=== PATIENT | female | born 1960 | race Caucasian/White ===

== ENCOUNTER → 2023-12-07 07:27 | Outpatient (REF) | payer OTHER, SELFPAY | LOC: HWRAD 07:27 | PROVIDERS: ATTENDING PHYSICIAN Nurse Practitioner Family; FAMILY PHYSICIAN Family Medicine | DX: Z78.0 Asymptomatic menopausal state (principal); N95.1 Menopausal and female climacteric states | CPT/HCPCS: 77080 ==

== ENCOUNTER → 2023-12-21 09:11 | Outpatient (REF) | payer OTHER, SELFPAY | LOC: HWWDC 09:11 | PROVIDERS: ATTENDING PHYSICIAN Nurse Practitioner Family; FAMILY PHYSICIAN Family Medicine | DX: Z12.31 Encounter for screening mammogram for malignant neoplasm of breast (principal) | CPT/HCPCS: 77063; 77067 ==

== ENCOUNTER → 2024-12-07 12:31 | Outpatient (REF) | payer OTHER, SELFPAY | LOC: RAD 12:31 | PROVIDERS: ATTENDING PHYSICIAN Family Medicine; FAMILY PHYSICIAN Family Medicine | DX: R14.0 Abdominal distension (gaseous) (principal) | CPT/HCPCS: 74018; 76700 ==

== ENCOUNTER 2024-12-10 13:42 | Inpatient (IN) | payer OTHER, SELFPAY ==
[2024-12-10] VITALS (7 sets, daily range): BP systolic 104–158; BP diastolic 58–99; BMI 22.7
--- NOTE | 2024-12-10 08:18 | ED.GENMED ---
History of Present Illness
General
Chief Complaint: Abdominal Symptoms
Source: patient and spouse
Time Seen by Provider: 12/10/24 07:59
History of Present Illness
History of Present Illness:
CHIEF COMPLAINT(S)
Bloating and feeling of fullness.
HISTORY OF PRESENT ILLNESS
The patient is a 64-year-old female with no significant past medical history who presents with bloating and a sensation of fullness that began approximately two to three weeks ago. She reports no associated pain, nausea, vomiting, or diarrhea but
mentions an increasing inability to eat and drink due to feeling full quickly. She has observed a change in her bowel movements which have become less frequent, yet without associated discomfort. The patient notes that her heart rate is now in the
90s, whereas it used to be in the 60s, and she has experienced a notable sleeping difficulty, necessitating her to sit in a chair to breathe comfortably. There is no report of fevers, chills, weight loss, or unintended weight gain. The patient has a
history of Lyme disease two years ago and made subsequent lifestyle adjustments to maintain a healthy diet. No shortness of breath was explicitly stated, but she described breathing difficulty as impacting her ability to rest.
SOCIAL HISTORY
The patient reports past use of cigarettes as a teenager and currently consumes an alcoholic cocktail at dinner regularly. There is no reported use of intravenous drugs.
MEDICATIONS
The patient takes supplements for potential osteopenia.
REVIEW OF SYSTEMS
- Constitutional: Feeling of fullness, bloating.
- Cardiovascular: Increased heart rate noted by the patient.
- Respiratory: Difficulty breathing while lying flat.
- Gastrointestinal: Early satiety, decreased bowel movements, no nausea, vomiting, or diarrhea.
Past History
Past History
ED Past Medical History: Hypercholesterolemia and Other (Lyme disease)
ED Past Surgical History: None
Social History
Tobacco: Non-smoker
Alcohol: None
Drug: None
Personal:
Living: with family
Review of Systems
Review of Systems
All Other Systems: ROS reviewed and negative except as documented in HPI and ROS
Phy Exam
Physical Exam
Physical Exam:
GENERAL: Alert , in no apparent distress
EYE: clear conjunctiva b/l
HEAD: NCAT
ENT: o/p clr, mmm.
CARDIAC: Regular rate and rhythm .
LUNGS: Clear breath sounds bilaterally, no acute respiratory distress, no wheezes/rales/rhonchi
ABDOMEN: somewhat firm, distended, no focal ttp, normoactive bowel sounds, no r/g, no cvat
NEUROLOGICAL: Alert and oriented
SKIN: Warm and dry, skin intact.
MUSCULOSKELETAL: No edema, well perfused.
PSYCH: Normal and appropriate interaction.
Scores
Heart Failure Risk
Heart Failure Risk Score: Not Applicable
Heart Score for Chest Pain Patients
STEMI patient?: Not applicable
Withdrawal Assessment of Alcohol
Withdrawal Assessment Completed?: Not applicable
Course
Orders/Labs/Results
Orders:
Orders
12/10/24 08:04
CMP [Comprehensive Metabolic Panel] Urgent
Complete Blood Count/With Diff Urgent
Lipase Urgent
Comment: ADD ON
12/10/24 08:32
Add On- LAB Urgent
Tests Added?: lipase
Iohexol [Omnipaque] See Protocol PO NOW STA
12/10/24 08:33
CT Abd/pel W Iv And Oral Contr Urgent
Comment:
Reason For Exam: abd distention, ascites on US imaging
12/10/24 09:46
Urinalysis Reflex To Culture Urgent
Date Specimen was Collected: 12/10/24
Time Specimen was Collected: 09:44
Urine Microscopic Reflex Cult Urgent
Urine Culture Urgent
NETTIE Source: U
Specimen Description:
Date Specimen was Collected: 12/10/24
Time Specimen was Collected: 09:44
12/10/24 12:46
Admit/Transfer Patient As Directed
Co-Sign Provider:
Level of Care: Inpatient admission
Assign to:: Medical/Surgical
Physician / Group: tyrone
Diagnosis: abdominal distention
Reason for Hospitalization: abdominal distention
Expected length of stay greater than two midnights?: Yes
ELOS- Estimated Length of Stay in days: 2
I certify the patient meets the requirements for IP care: Yes
PRN Pain Medication Management As Directed
May give lesser potent ordered pain med per pt: Yes
preference::
Protocol:: Medication orders for pain may be administered in a
manner that supports deferring to patient preference
when the pt is:
- Requesting an ordered lesser potent pain medication.
Least to most potent pain medications are defined
as: acetaminophen < NSAID < tramadol < opioids
(morphine, oxycodone, hydromorphone).
- Requesting a lesser dose of the same medication IF
ORDERED.
- Requesting a less intrusive route of administration
if both routes are prescribed by the provider (PO <
IV).
12/10/24 12:47
Code Status As Directed
Resuscitation Status: Full Code
Abnormal Lab Results
12/10/24 12/10/24
08:04 09:46
WBC 11.4 H 10^3/uL
(4.8-10.8)
RBC 4.19 L 10^6/uL
(4.20-5.40)
Plt Count 565 H 10^3/uL
(130-400)
Abs Immat Gran (auto) 0.1 H 10^3/uL
(0-0.05)
Absolute Neuts (auto) 8.7 H 10^3/uL
(1.4-6.5)
Absolute Monos (auto) 0.9 H 10^3/uL
(0.1-0.6)
Neutrophils % 76.4 H %
(42.2-75.2)
Lymphocytes % 13.6 L %
(20.5-51.1)
Glucose 107 H mg/dl
(70-99)
Urine Ketones 3+ A
(Negative)
Ur Occult Blood Reflex 1+ A
(Negative)
Leukocyte Esterase Rfl 1+ A
(Negative)
Urine RBC 3-6 A /HPF
(0-2)
Urine Bacteria (Reflex) Moderate A
(Negative)
Urine Albumin (Reflex) 2+ A
(Neg - Trace)
12/10/24 08:04
12/10/24 08:04
Vital Signs
Initial and Last Documented VS:
Initial Vital Signs
Temp Pulse Resp BP Pulse Ox
97.8 F 107 18 158/90 100
12/10/24 07:28 12/10/24 07:28 12/10/24 07:28 12/10/24 07:28 12/10/24 07:28
Last Documented Vital Signs
Temp Pulse Resp BP Pulse Ox
97.8 F 96 16 150/84 98
12/10/24 07:28 12/10/24 13:02 12/10/24 13:02 12/10/24 13:02 12/10/24 13:02
MDM/Problems Addressed
Differential Diagnosis Includes:
The Differential Diagnosis includes, in no particular order and is not limited to:
1. Ascites
2. Gastroparesis
3. Gastroesophageal reflux disease (GERD)
4. Abdominal tumor
5. Hepatomegaly
6. Pancreatitis
7. Congestive heart failure
8. Ovarian cancer/other malignancy
9. Gastric outlet obstruction
10. Small bowel obstruction
MDM/Problems Addressed:
- Perform a Computed Tomography (CAT) scan with both oral and intravenous contrast to assess abdominal and pelvic regions.
- Blood work ordered
- Maintain communication with the patients primary care physician, Dr. Ribera, regarding test results.
*Radiology
Radiology exam reviewed: radiology read reviewed
*Pulse Oximetry
Patient hypoxic: no
Comment: 98
*Business Project Manager Interpretation
Rate: normal
Rhythm: sinus
*Critical Care Note
Total Time (30-74mins, 75-104mins- exclusive of procedures): Not Applicable
Patient Management
Discussion with other providers: Hospitalist and Employment Clerk
Escalation/DeEscalation of care consider admission/obs:
Patient CT scan findings noted for the following:
IMPRESSION:
1. Moderate to large volume MALIGNANT ASCITES.
2. 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
3. Small soft tissue masses within or around ileal small bowel loops in the right mid abdomen. Diagnostic possibilities are (1) serosal metastases or (2) mucosal-based small bowel tumors.
4. Moderate appendiceal wall thickening without evidence for abnormal distention.
I discussed the case with on-call oncologist, Dr. Welsh, who requests we admit the patient for further evaluation and she will see the patient in consult. I also discussed the case with interventional radiology to see if we would be able to
obtain paracentesis today but due to their current schedule this would be likely occurring either tomorrow or Thursday. I notified the hospitalist team who accept the patient for continued evaluation and treatment.
ED Attending Note
-
Portions of this chart may have been created with voice recognition software.� Occasional wrong word or��sound alike� substitutions may have occurred due to the inherent limitations of voice recognition software.
Discharge Plan
Departure
Patient Disposition: Admit
Date of Disposition: 12/10/24
Time of Disposition: 12:30
Presentation/result/management discussed w/ accepting MD/DO: Hospitalist
Discharge Problem:
Malignant ascites
Interventions
Interventions:
*Risk Screen - Suicide Last Done: 12/10/24 07:28
*General Assessment Last Done: 12/10/24 07:28
*Neglect/Abuse Screening Last Done: 12/10/24 07:28
*ED- Fall Risk Assessment Last Done: 12/10/24 07:51
*ED COVID-19 Vaccine History Last Done: 12/10/24 07:51
CK-Xnwusj-Cfgamibpqt Assessment Last Done: 12/10/24 07:51
[2024-12-10 08:27] LABS: ALT (SGPT) < 10 U/L (0-35); AST (SGOT) 22 U/L (14-36); Albumin 3.7 g/dl (3.5-5.0); Alkaline Phosphatase 95 U/L (38-126); Blood Urea Nitrogen 10 mg/dl (7-17); Calcium 9.3 mg/dl (8.4-10.2); Carbon Dioxide 28 mmol/L (22-30); Chloride 102 mmol/L (98-107); Estimated Creatinine Clearance 59 ml/min; Glucose 107 mg/dl (70-99); Potassium 4.4 mmol/L (3.5-5.1); Sodium 136 mmol/L (135-145); Total Bilirubin 0.5 mg/dl (0.2-1.3); Total Protein 6.4 g/dl (6.3-8.2); eGFR > 60.00
[2024-12-10 08:31] LABS: % Basophils 0.7 % (0-2); % Eosinophils 0.8 % (0-6); % Immature Granulocytes 0.5 % (0-0.5); % Lymphocytes 13.6 % (20.5-51.1); % Neutrophils 76.4 % (42.2-75.2); Absolute Basophils 0.1 10^3/uL (0-0.2); Absolute Eosinophils 0.1 10^3/uL (0-0.7); Absolute Immature Granulocytes 0.1 10^3/uL (0-0.05); Absolute Lymphocytes 1.6 10^3/uL (1.2-3.4); Absolute Monocytes 0.9 10^3/uL (0.1-0.6); Absolute Neutrophils 8.7 10^3/uL (1.4-6.5); Hematocrit 38.1 % (37.0-47.0); Hemoglobin 12.8 g/dL (12.0-16.0); Mean Corp Hgb Conc. 33.6 g/dL (33.0-37.0); Mean Corpuscular Hgb 30.5 pg (27.0-31.0); Mean Corpuscular Volume 90.9 fL (81.0-99.0); Mean Platelet Volume 9.9 fL (7.4-10.4); Nucleated Red Blood Cells % 0 %; Platelet Count 565 10^3/uL (130-400); Red Blood Cell Count 4.19 10^6/uL (4.20-5.40); Red Cell Dist. Width 12.2 % (11.5-14.5); White Blood Cell Count 11.4 10^3/uL (4.8-10.8)
[2024-12-10] MEDS: OMNIPAQUE 50 ML PO (08:41)
[2024-12-10 09:01] LABS: Lipase 55 U/L (23-300)
[2024-12-10 09:58] LABS: Urine Albumin 2+ (Neg - Trace); Urine Bilirubin Negative (Negative); Urine Character Clear (Clear); Urine Color Yellow; Urine Glucose Negative (Negative); Urine Ketone 3+ (Negative); Urine Leukocyte 1+ (Negative); Urine Nitrite Negative (Negative); Urine Occult Blood 1+ (Negative); Urine Specific Gravity 1.025 (<1.030); Urine Urobilinogen 1+ (Neg - 1+)
[2024-12-10 10:07] LABS: Urine Bacteria Moderate (Negative); Urine Mucus Many; Urine Squamous Cell 0-2 /LPF (Few); Urine White Cell 0-2 /HPF (0-5)
--- NOTE | 2024-12-10 12:52 | HPS.HSE ---
Family Physician
-
Family Physician: Sidney Ribera
Chief Complaint
-
abdominal fullness
History of Present Illness
64-year-old female past medical history of Lyme's disease 2 years ago presenting with bloating and fullness that started 2 to 3 weeks ago. No abdominal pain, nausea vomiting or diarrhea but has inability to eat and drink due to feeling full
quickly. Bowel movements have become less frequent without discomfort. Heart rate is now in the 90s and used to be in the 60s. She has had difficulty sleeping and has to sit in a chair to breathe comfortably. No fevers or chills, weight loss or
weight gain.
No family history of GI problems, ovarian tumors or malignancies.
She smoked cigarettes as a teenager and drinks an alcoholic cocktail at dinner regularly. Denies drug IV drugs.
Medical History
Past Medical History
Past Medical History: Reports Other
Past Surgical History: Reports None
Social History
Tobacco: Non-smoker
Alcohol: None
Drug: None
Family History
Family History: Not pertinent
Allergies / Home Medications
Allergies reflects when Allergies were last updated in [facility].
Home Medications with original date entered in [facility]
Allergy/Medication List:
Allergies
Allergy/AdvReac Type Severity Reaction Status Date / Time
No Known Allergies Allergy Unverified 12/10/24 07:34
Review of Systems
-
History Source: Patient
A 12 point ROS was completed and negative except as noted: Yes
Constitutional: Reports No Symptoms
EENT: Reports No Symptoms
Respiratory: Reports No Symptoms
Cardiac: Reports No Symptoms
Abdomen/GI: Reports See HPI
: Reports No Symptoms
Musculoskeletal: Reports No Symptoms
Skin: Reports No Symptoms
Neurological: Reports No Symptoms
Endocrine: Reports No Symptoms
Hematologic/Lymphatic: Reports No Symptoms
Psych: Reports No Symptoms
Physical Exam
Vital Signs
Vital Signs
Temp Pulse Resp BP Pulse Ox
97.8 F 95 18 137/74 100
12/10/24 07:28 12/10/24 08:02 12/10/24 08:02 12/10/24 08:02 12/10/24 08:02
Physical Exam
General: Well Developed, Well Nourished and No Apparent Distress
HEENT: NormoCephalic, Moist mucous membranes and Atraumatic
Respiratory: Clear
Cardiac: S1/S2 and Regular Rhythm; No Murmur or Rub
GI: Soft, Non Tender, Normal Bowel Sounds and Distended; No Organomegaly
Rectal: Deferred by Provider
Musculoskeletal: No Clubbing, No Cyanosis and No Edema
Skin: No Rash
Neuro: Nonfocal/grossly intact
Laboratory Results
-
12/10/24 08:04
12/10/24 08:04
Laboratory Results
Total Bilirubin 0.5 mg/dl (0.2-1.3) 12/10/24 08:04
AST 22 U/L (14-36) 12/10/24 08:04
ALT < 10 U/L (0-35) 12/10/24 08:04
Alkaline Phosphatase 95 U/L (38-126) 12/10/24 08:04
Lipase 55 U/L (23-300) 12/10/24 08:04
Data Reviewed
-
Lab Data: Labs Reviewed by me
Old Records: Reviewed
Impression/Plan
-
IMPRESSION:
PLAN:
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
-Leukocytosis
-CT scan shows moderate to large volume malignant ascites, omental metastatic disease in left upper quadrant, small soft tissue masses within or around ileal small bowel loops in the right midabdomen, moderate appendiceal wall thickening, 8.2 mm
cyst in the right ovary, moderate circumferential wall thickening in the gastric antrum, small hiatal hernia
- Concern for small bowel malignancy with associated malignant ascites
- IR consulted for paracentesis with fluid studies and cytology
- GI consulted
- Oncology consulted
History of Lyme's disease
Full code
DVT prophylaxis�heparin
Regular diet
--- NOTE | 2024-12-10 13:57 | CM ---
Met with patient at bedside in the ED
Pharmacy verified: [facility] @ [address] [facility]
Patient lives w/ ; multilevel home; 1 step to enter; 13 steps to 2nd floor; railing on stairs; bath has shower w/ seat and grab bar
PLOF: independent with ambulation, stairs, and ADLs; drives
No DME
NO SNF or Home Health utilization history
will transport home
Plan: anticipate discharge to home when stable; residential case manager will monitor for needs/services
--- NOTE | 2024-12-10 14:37 | EDRN ---
Patient taken to room 419-2 in wheelchair by crime lab technician.
[2024-12-10] MEDS: HEPARIN 5000 UNITS SC (20:28)
[2024-12-11 06:14] LABS: % Basophils 0.5 % (0-2); % Immature Granulocytes 0.6 % (0-0.5); % Lymphocytes 15.1 % (20.5-51.1); % Neutrophils 74.8 % (42.2-75.2); Absolute Basophils 0.1 10^3/uL (0-0.2); Absolute Eosinophils 0.1 10^3/uL (0-0.7); Absolute Immature Granulocytes 0.1 10^3/uL (0-0.05); Absolute Lymphocytes 1.4 10^3/uL (1.2-3.4); Absolute Monocytes 0.8 10^3/uL (0.1-0.6); Hematocrit 34.3 % (37.0-47.0); Hemoglobin 11.4 g/dL (12.0-16.0); Mean Corp Hgb Conc. 33.2 g/dL (33.0-37.0); Mean Corpuscular Hgb 29.9 pg (27.0-31.0); Mean Platelet Volume 9.8 fL (7.4-10.4); Nucleated Red Blood Cells % 0 %; Platelet Count 544 10^3/uL (130-400); Red Blood Cell Count 3.81 10^6/uL (4.20-5.40); Red Cell Dist. Width 11.9 % (11.5-14.5); White Blood Cell Count 9.4 10^3/uL (4.8-10.8)
[2024-12-11 06:46] LABS: ALT (SGPT) < 10 U/L (0-35); AST (SGOT) 20 U/L (14-36); Albumin 3.2 g/dl (3.5-5.0); Alkaline Phosphatase 94 U/L (38-126); Blood Urea Nitrogen 7 mg/dl (7-17); Calcium 8.8 mg/dl (8.4-10.2); Carbon Dioxide 25 mmol/L (22-30); Chloride 101 mmol/L (98-107); Estimated Creatinine Clearance 67 ml/min; Glucose 102 mg/dl (70-99); Potassium 4.8 mmol/L (3.5-5.1); Sodium 132 mmol/L (135-145); Total Bilirubin 0.5 mg/dl (0.2-1.3); Total Protein 5.7 g/dl (6.3-8.2); eGFR > 60.00
[2024-12-11 07:01] VITALS: BP 143/81
[2024-12-11] MEDS: VISBIOME 1 CAP PO (07:49)
[2024-12-11] MEDS: TUMS EX (EXTRA STRENGTH) CHEWABLE TABLET 600 MG PO (07:49)
[2024-12-11] MEDS: HEPARIN SC ×2 (07:50→20:23)
[2024-12-11] MEDS: CRESTOR 5 MG PO (07:50)
--- NOTE | 2024-12-11 08:24 | W.PN.HOSP.TC ---
Today's Communication/Plan
-
NPO after midnight for EGD to be done after paracentesis and possible omental lesion bx w/ IR
Assessment / Plan
Assessment / Plan
Physical Exam
General: no acute distress, appears comfortable at this time
HEENT: NormoCephalic, Moist mucous membranes and Atraumatic
Respiratory: Clear
Cardiac: S1/S2 and Regular Rhythm; No Murmur or Rub
GI: Soft, Non Tender, Normal Bowel Sounds, Distended
Musculoskeletal: No Clubbing, No Cyanosis and No Edema
Skin: No Rash
Neuro: AOx3 conversant coherent
Psych: Relatively calm, some anxiety noted regarding possible malignancy diagnosis.
64F Hyperlipidemia here for evaluation abd distension likely malignant ascites.
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
-Leukocytosis resovled
-CT scan shows moderate to large volume malignant ascites, omental metastatic disease in left upper quadrant, small soft tissue masses within or around ileal small bowel loops in the right midabdomen, moderate appendiceal wall thickening, 8.2 mm
cyst in the right ovary, moderate circumferential wall thickening in the gastric antrum, small hiatal hernia
- Concern for small bowel malignancy with associated malignant ascites
- IR consulted for paracentesis with fluid studies and cytology planned for Thu12/12/24 also possible bx omental lesion if accesible
- GI consult appreciated npo after Midnight for EGD after paracentesis as above, eventual colonoscopy evaluation as well
- Oncology consult appreciated follow up tumor markers
HLD
-cont statin
Full code
DVT prophylaxis� Lovenox
Regular diet
I spent a total of 45 minutes with the patient or on the floor. More than 50% of this time involved counseling and coordination of care.
Anticipated Discharge: 24 - 48 hours
Subjective/Interval History
-
Date of Service: December 11, 2024
No acute distress. Ambulatory without issues or need for assist device. Appears comfortable. Abd distension noted without significant pain or tenderness.
Objective Data
-
Labs:
Laboratory Results
12/11/24
05:39
WBC 9.4
Hgb 11.4 L
Hct 34.3 L
Plt Count 544 H
Sodium 132 L
Potassium 4.8
Chloride 101
Carbon Dioxide 25
BUN 7
Creatinine 0.7
Glucose 102 H
Calcium 8.8
Total Bilirubin 0.5
AST 20
ALT < 10
Alkaline Phosphatase 94
Vital Signs:
Vital Signs
Temp Pulse Resp BP Pulse Ox
97.3 F 102 18 143/81 97
12/11/24 07:01 12/11/24 07:01 12/11/24 07:01 12/11/24 07:01 12/11/24 07:01
I&O
12/10/24 12/11/24 12/12/24
06:59 06:59 06:59
Intake Total 480 / 480
Balance 480 / 480
--- NOTE | 2024-12-11 10:07 | CON.GI ---
Consultation
-
Date/Time Consultation Requested: 12/11/24
Date/Time Consultation Performed: 12/11/24
Requesting Provider:
Performing Provider:
Reason for Consultation: Abdominal distention
Medical History
Chief Complaint / HPI
Chief Complaint: Abdominal distention
History of Present Illness:
64-year-old female with no significant past medical history presenting to the emergency room with complaints of abdominal fullness and distention in the 3 weeks. She reports that other than distention, she denies any abdominal pain, nausea or
vomiting. No heartburn, regurgitation, sour taste, sore throat, choking or coughing. No trouble swallowing. Her bowel pattern is usually 1 formed stool a day, no pushing or straining, good evacuation. No blood in the stool or black stool. No
loss of appetite, unintentional weight loss or NSAID use.
Last colonoscopy for screening with Dr. Puckett in 2009,
Diverticulosis noted, otherwise unremarkable. As per patient she gets Cologuard testing every 3 years, last Cologuard February 2024 negative as per patient. No family history of colon cancer or colon polyps.
In the emergency room, labs showed hemoglobin slightly low at 11.3, normocytic but elevated platelets, CMP shows albumin of 3.2. Abdominal ultrasound showed small to moderate volume ascites and mildly heterogeneous hepatic echotexture suggesting
chronic hepatic disease without any cirrhotic morphology.
CT scan of the abdomen and pelvis with IV and oral contrast revealed moderate to large volume ascites presumably malignant, omental metastatic disease in the left upper quadrant, small soft tissue masses within or around ileal small bowel loops in
the right mid abdomen, rule out serosal metastasis versus small bowel tumors, moderate appendiceal wall thickening, moderate circumferential wall thickening in the gastric antrum and small hiatal hernia.
Past Medical History
Past Surgical History: None
Social History
Tobacco: Former Smoker
Alcohol: Daily (7-10 drinks a week but at least 1 drink a day)
Family History
Family History: Reviewed & Not Pertinent
Allergies / Home Medications
Allergy/AdvReac Type Severity Reaction Status Date / Time
No Known Allergies Allergy Verified 12/10/24 13:00
�Medication �Instructions �Recorded
Collagen Peptides 1 dose PO DAILY Supplement 12/10/24
Lactobac no.2-Bifidobac no.1-S. 1 cap PO DAILY Supplement 12/10/24
thermo 112.5 billion cell capsule
(Visbiome)
brimonidine 0.025 % eye drops 1 drp ophthalmic (eye) DAILYPRN 12/10/24
(Lumify) PRN red eyes
calcium carbonate 600 mg PO DAILY Supplement 12/10/24
finasteride 1 mg tablet 1 mg PO DAILY BPH 12/10/24
rosuvastatin 5 mg tablet (Crestor) 5 mg PO DAILY High Cholesterol 12/10/24
Review of Systems
-
All other systems: A 12 pt ROS was Negative except as stated above in HPI
Vital Signs
Temp Pulse Resp BP Pulse Ox
97.3 F 102 18 143/81 97
12/11/24 07:01 12/11/24 07:01 12/11/24 07:01 12/11/24 07:01 12/11/24 07:01
Physical Exam
Exam
HEENT: Normocephalic
Cardiac: S1/S2
GI: Soft, Non Tender and Distended
Results
WBC 9.4 10^3/uL (4.8-10.8) 12/11/24 05:39
Hgb 11.4 g/dL (12.0-16.0) L 12/11/24 05:39
Hct 34.3 % (37.0-47.0) L 12/11/24 05:39
MCV 90.0 fL (81.0-99.0) 12/11/24 05:39
Plt Count 544 10^3/uL (130-400) H 12/11/24 05:39
Absolute Neuts (auto) 7.0 10^3/uL (1.4-6.5) H 12/11/24 05:39
Sodium 132 mmol/L (135-145) L 12/11/24 05:39
Potassium 4.8 mmol/L (3.5-5.1) 12/11/24 05:39
Chloride 101 mmol/L (98-107) 12/11/24 05:39
Carbon Dioxide 25 mmol/L (22-30) 12/11/24 05:39
BUN 7 mg/dl (7-17) 12/11/24 05:39
Creatinine 0.7 mg/dL (0.6-1.0) 12/11/24 05:39
Calcium 8.8 mg/dl (8.4-10.2) 12/11/24 05:39
Total Bilirubin 0.5 mg/dl (0.2-1.3) 12/11/24 05:39
AST 20 U/L (14-36) 12/11/24 05:39
ALT < 10 U/L (0-35) 12/11/24 05:39
Alkaline Phosphatase 94 U/L (38-126) 12/11/24 05:39
Lipase 55 U/L (23-300) 12/10/24 08:04
Diagnostic Image Results:
Prior GI Procedures:
EGD:
Colonoscopy:
Assessment / Plan
-
64-year-old female with no significant past medical history presenting with complaints of abdominal distention, subsequent imaging with CT scan showing moderate to large volume ascites thought to be malignant, also noted this omental lesion in the
left upper quadrant, severe intraluminal or subserosal masses in the area of small bowel loops in the right lower quadrant and appendiceal wall thickening as well. Also noted is moderate amount of circumferential submucosal edema and wall
thickening in the gastric antrum.
- Ascites concerning for malignancy
Will need diagnostic/therapeutic paracentesis, fluid for white cells, albumin, total protein, cytology and cultures.
She will also need IR biopsy of the omental lesion if accessible which would be very helpful for pathology to determine the primary lesion.
Following paracentesis, upper endoscopy to evaluate small bowel thickening.
Subsequent colonoscopy to evaluate thickening of the appendiceal area and also rule out distal small bowel lesions.
Reviewed oncology evaluation as well.
-
-
Thank you for consultation and allowing me to participate in the patient's care. Please call the hospice community liaison GI physician during the after hours with any questions or concerns.
[2024-12-11 12:56] LABS: Iron 22 ug/dl (37-170)
[2024-12-11 13:05] LABS: Percent Saturation 8 % (20-50); Total Iron Binding Capacity 260 ug/dl (265-497)
--- NOTE | 2024-12-11 13:21 | W.PN.UPDATE ---
Update Note
Progress Note Update
Pt seen and examined, chart reviewed.
She has ascites on exam, omental thickening on CT.
No family history of cancer and no localizing signs or symptoms for a primary.
IR consulted regarding diagnostic paracentesis.
Tumor markers ordered although non-specific.
Await GI consult, needs EGD to eval gastric wall thickening and colonoscopy to eval appendiceal thickening.
Will d/w Dr. Kellogg upon his return from vacation.
FULL CONSULT TO FOLLOW.
[2024-12-11 13:27] LABS: CEA < 0.31 ng/ml
[2024-12-11 13:41] LABS: Ferritin 58.6 ng/ml (11.1-264.0)
[2024-12-11 14:53] LABS: Total Iron Binding Capacity 274 ug/dl (265-497)
[2024-12-11 15:28] LABS: Ferritin 64.9 ng/ml (11.1-264.0)
[2024-12-11 15:32] VITALS: BP 126/88
[2024-12-11 20:00] VITALS: BMI 22.5
--- NOTE | 2024-12-11 21:54 | CON.ONC ---
Consultation
-
Date Consultation Requested: 12/10/24
Date Consultation Performed: 12/11/24
Requesting Provider: César Arenas
Performing Provider: Carolina Welsh
Reason for Consultation: Possible intra-abdominal malignancy
Impression
Impression
Abdominal and pelvic ascites with omental caking, concerning for malignancy
Thrombocytosis
Mild normocytic anemia
Plan
Plan
Await diagnostic paracentesis for cell count, chemistries, cytology.
Tumor markers ordered although nonspecific.
Await GI consult, needs EGD to evaluate gastric wall thickening and colonoscopy to evaluate appendiceal thickening.
Thank you for consult, will follow along with you
Patient History
History of Present Illness
64-year-old woman in excellent health, no medical issues other than Lyme disease 2 years ago. About 3 weeks ago she began to note weight gain and abdominal distention. She underwent an abdominal ultrasound as an outpatient on December 07 which showed
small to moderate volume of ascites and mildly heterogeneous hepatic echotexture. She became increasingly uncomfortable due to abdominal distention and presented to the [facility] emergency room where she underwent a CT of the abdomen and
pelvis showing moderate to large volume of ascites, nodular thickening of the omentum, and thickening of the appendiceal wall and the gastric wall. She was admitted for management of symptomatic ascites. Patient is up-to-date with mammography.
She last underwent colonoscopy at age 50 but underwent Cologuard testing in February 2024. She has had no rectal bleeding or melena, no change in bowel habits and no abdominal pain. She has had no vaginal bleeding, cough, chest pain or shortness
of breath.
Past-Medical/Surgical History
Past medical history
Lyme disease 2 years ago
Past surgical history
None
Social History
Tobacco: Non-smoker
Alcohol: 1 glass of wine daily
Drug: None
Family History
Family History: Not pertinent
Patient Medication
�Medication �Instructions �Recorded �Confirmed �Last Taken �Type
Collagen Peptides 1 dose PO DAILY Supplement 12/10/24 12/10/24 12/09/24 History
Lactobac no.2-Bifidobac no.1-S. 1 cap PO DAILY Supplement 12/10/24 12/10/24 12/09/24 History
thermo 112.5 billion cell capsule
(Visbiome)
brimonidine 0.025 % eye drops 1 drp ophthalmic (eye) DAILYPRN 12/10/24 12/10/24 Unknown History
(Lumify) PRN red eyes
calcium carbonate 600 mg PO DAILY Supplement 12/10/24 12/10/24 12/09/24 History
finasteride 1 mg tablet 1 mg PO DAILY BPH 12/10/24 12/10/24 Unknown History
rosuvastatin 5 mg tablet (Crestor) 5 mg PO DAILY High Cholesterol 12/10/24 12/10/24 12/09/24 History
Active Medications
Generic Name Dose Route Start Last Admin
Trade Name Freq PRN Reason Stop Dose Admin
Acetaminophen 650 mg 12/11/24 10:55
Acetaminophen 325 Mg Tablet PO 01/08/25 10:54
Q6HPRN PRN
mild pain/ fever>100.5F/BROWN
Calcium Carbonate 600 mg 12/11/24 08:00 12/11/24 07:49
Calcium Antacid 300 Mg (Calcium Carbonate 750 Mg) Chew Tablet PO 01/08/25 07:59 600 mg
DAILY ROULA Administration
Heparin Sodium 5,000 units 12/10/24 20:00 12/11/24 20:23
Heparin 5,000 Units/Ml 1 Ml Vial SC 01/07/25 19:59 Not Given
Q12 ROULA
Lactobacillus/Bifidobacterium 1 cap 12/11/24 08:00 12/11/24 07:49
Lactobac/Bifidobac (Visbiome) PO 01/08/25 07:59 1 cap
DAILY ROULA Administration
Lorazepam 0.25 mg 12/11/24 11:30
Lorazepam 0.5 Mg Tablet PO 01/08/25 11:29
Q6HPRN PRN
anxiety
Finasteride 1 Mg 0 mg 12/11/24 08:00
Tablet Po Daily-- PO 01/08/25 07:59
Patient's Own DAILY ROULA
Rosuvastatin Calcium 5 mg 12/11/24 08:00 12/11/24 07:50
Rosuvastatin (Crestor) 5 Mg Tablet PO 01/08/25 07:59 5 mg
DAILY ROULA Administration
Sodium Chloride 0 flush 12/10/24 15:00
Sodium Chloride 0.9% (Flush) Syringe IV 01/07/25 14:59
PER PROTOCOL ROULA
Review of Systems
-
History Source: Patient
All Other Systems: Reviewed and Negative
Physical Exam
-
General: Well Developed, Well Nourished and No Apparent Distress
HEENT: Moist Mucous Membranes; Negative Jaundice
Cardiology: Normal Sinus Rhythm, S1 and S2
Pulmonary: Clear; Negative Wheezes
GI: Soft, Distended and Tense
Musculoskeletal: No Clubbing, No Cyanosis and No Edema
Extremities: Negative Phlebitic Signs
Neurology: Non Focal
Skin: Warm and Dry; Negative Rash
Hematologic / Lymphatic: No Lymphadenopathy
Psych: Calm and Intact Judgement/Insight
Labs
Lab Results
WBC 9.4 10^3/uL (4.8-10.8) 12/11/24 05:39
RBC 3.81 10^6/uL (4.20-5.40) L 12/11/24 05:39
Hgb 11.4 g/dL (12.0-16.0) L 12/11/24 05:39
Hct 34.3 % (37.0-47.0) L 12/11/24 05:39
MCV 90.0 fL (81.0-99.0) 12/11/24 05:39
MCH 29.9 pg (27.0-31.0) 12/11/24 05:39
MCHC 33.2 g/dL (33.0-37.0) 12/11/24 05:39
RDW 11.9 % (11.5-14.5) 12/11/24 05:39
Plt Count 544 10^3/uL (130-400) H 12/11/24 05:39
MPV 9.8 fL (7.4-10.4) 12/11/24 05:39
Abs Immat Gran (auto) 0.1 10^3/uL (0-0.05) H 12/11/24 05:39
Absolute Neuts (auto) 7.0 10^3/uL (1.4-6.5) H 12/11/24 05:39
Absolute Lymphs (auto) 1.4 10^3/uL (1.2-3.4) 12/11/24 05:39
Absolute Monos (auto) 0.8 10^3/uL (0.1-0.6) H 12/11/24 05:39
Absolute Eos (auto) 0.1 10^3/uL (0-0.7) 12/11/24 05:39
Absolute Basos (auto) 0.1 10^3/uL (0-0.2) 12/11/24 05:39
Immature Gran % 0.6 % (0-0.5) H 12/11/24 05:39
Neutrophils % 74.8 % (42.2-75.2) 12/11/24 05:39
Lymphocytes % 15.1 % (20.5-51.1) L 12/11/24 05:39
Monocytes % 8.0 % (1.7-9.3) 12/11/24 05:39
Eosinophils % 1.0 % (0-6) 12/11/24 05:39
Basophils % 0.5 % (0-2) 12/11/24 05:39
Creatinine 0.7 mg/dL (0.6-1.0) 12/11/24 05:39
Vital Signs
Vital Signs
Temp Pulse Resp BP Pulse Ox
98.8 F 92 18 126/88 95
12/11/24 15:32 12/11/24 15:32 12/11/24 15:32 12/11/24 15:32 12/11/24 15:32
[2024-12-11 23:26] VITALS: BP 130/79
[2024-12-12 07:00] VITALS: BP 126/79
[2024-12-12 07:05] LABS: Hematocrit 35.5 % (37.0-47.0); Hemoglobin 11.9 g/dL (12.0-16.0); Mean Corp Hgb Conc. 33.5 g/dL (33.0-37.0); Mean Corpuscular Hgb 30.1 pg (27.0-31.0); Mean Corpuscular Volume 89.9 fL (81.0-99.0); Mean Platelet Volume 9.8 fL (7.4-10.4); Platelet Count 591 10^3/uL (130-400); Red Blood Cell Count 3.95 10^6/uL (4.20-5.40); Red Cell Dist. Width 11.9 % (11.5-14.5); White Blood Cell Count 8.3 10^3/uL (4.8-10.8)
[2024-12-12 07:35] LABS: Blood Urea Nitrogen 6 mg/dl (7-17); Calcium 8.8 mg/dl (8.4-10.2); Carbon Dioxide 26 mmol/L (22-30); Chloride 100 mmol/L (98-107); Estimated Creatinine Clearance 67 ml/min; Glucose 101 mg/dl (70-99); Magnesium 2.2 mg/dl (1.6-2.3); Phosphorus 3.9 mg/dl (2.5-4.5); Potassium 4.8 mmol/L (3.5-5.1); Sodium 133 mmol/L (135-145); eGFR > 60.00
[2024-12-12 07:38] LABS: INR 1.01; PT 13.7 Sec (11.4-14.6)
[2024-12-12 07:39] LABS: APTT 30.5 Sec (23.4-35.0)
[2024-12-12 08:15] VITALS: BP 140/75; BP_SYST 90
--- NOTE | 2024-12-12 08:16 | W.PN.ONC2 ---
Today's Communication / Plan
-
follow for path and cytology
Impression
Impression
Abdominal and pelvic ascites with omental caking, concerning for malignancy
Thrombocytosis
Mild normocytic anemia
Plan
Plan
Await diagnostic paracentesis for cell count, chemistries, cytology.
Tumor markers ordered although nonspecific.
Await EGD to evaluate gastric wall thickening and colonoscopy to evaluate appendiceal thickening.
Subjective/Objective
Subjective
off unit, not seen or examined by LEATHER COLORER
chart reviewed
Vital Signs:
Vital Signs
Temp Pulse Resp BP Pulse Ox
97.0 F 83 18 130/79 97
12/11/24 23:26 12/11/24 23:26 12/11/24 23:26 12/11/24 23:26 12/11/24 23:26
Lab Results:
Laboratory Data
WBC 8.3 10^3/uL (4.8-10.8) 12/12/24 06:22
Hgb 11.9 g/dL (12.0-16.0) L 12/12/24 06:22
Plt Count 591 10^3/uL (130-400) H 12/12/24 06:22
PT 13.7 Sec (11.4-14.6) 12/12/24 06:22
INR 1.01 12/12/24 06:22
APTT 30.5 Sec (23.4-35.0) 12/12/24 06:22
eGFR > 60.00 12/12/24 06:22
[2024-12-12 08:55] VITALS: BP 122/76
[2024-12-12] MEDS: TUMS EX (EXTRA STRENGTH) CHEWABLE TABLET PO ×2 (09:27→09:34)
[2024-12-12] MEDS: VISBIOME PO ×2 (09:28→09:34)
[2024-12-12] MEDS: CRESTOR 5 MG PO (09:29)
[2024-12-12 10:03] LABS: Body Fluid Albumin 2.6 g/dl; Body Fluid Amylase 42 U/L; Body Fluid Protein 4.6 g/dl
[2024-12-12 10:15] LABS: Body Fluid LDH 1616 U/L
--- NOTE | 2024-12-12 10:51 | W.PN.HOSP.TC ---
Today's Communication/Plan
-
GI plans for colonoscopy tomorrow
Consult IR for possible omental lesion biopsy
Assessment / Plan
Assessment / Plan
64F Hyperlipidemia here for evaluation abd distension likely malignant ascites.
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
CT scan shows moderate to large volume malignant ascites, omental metastatic disease in left upper quadrant, small soft tissue masses within or around ileal small bowel loops in the right midabdomen, moderate appendiceal wall thickening, 8.2 mm cyst
in the right ovary, moderate circumferential wall thickening in the gastric antrum, small hiatal hernia
Concern for small bowel malignancy with associated malignant ascites
Status post paracentesis 12/12, draining 3.5 L, follow-up cytology
Appreciate oncology input, follow-up tumor markers
Appreciate GI input, 12/12 EGD shows 1 gastric polyp and gastric body protrusion
GI recommends colonoscopy tomorrow, rec Protonix 40 mg daily
#Hyperlipidemia
Continue statin
DVT prophylaxis�subcu Lovenox
Full code
Total time spent to see the patient on the floor, examine the patient, review data and lab results, discuss treatment plan with patient, nursing staff around 50 minutes.
Physical Exam
General: No acute distress
HEENT: Normocephalic, Atraumatic, EOMI, MMM
Respiratory: Clear to Auscultation bilaterally
Cardiac: Normal S1/S2, Regular Rate and Rhythm
GI: Soft, Nontender, Nondistended, Normal Bowel Sounds
Extremities: No Clubbing, Cyanosis, or Edema
Neuro: Nonfocal/Grossly Intact
Psych: Calm, Cooperative
Anticipated Discharge: 24 - 48 hours
Subjective/Interval History
-
Date of Service: December 12, 2024
Patient reports feeling better after paracentesis. No nausea, no vomiting. No shortness of breath, no chest pain. No fever.
Objective Data
-
Labs:
Laboratory Results
12/12/24
06:22
WBC 8.3
Hgb 11.9 L
Hct 35.5 L
Plt Count 591 H
PT 13.7
INR 1.01
APTT 30.5
Sodium 133 L
Potassium 4.8
Chloride 100
Carbon Dioxide 26
BUN 6 L
Creatinine 0.7
Glucose 101 H
Calcium 8.8
Vital Signs:
Vital Signs
Temp Pulse Resp BP Pulse Ox
98.5 F 90 16 122/76 100
12/12/24 08:15 12/12/24 08:55 12/12/24 08:55 12/12/24 08:55 12/12/24 08:15
I&O
12/11/24 12/12/24 12/13/24
06:59 06:59 06:59
Intake Total 480 / 480 240 / 240
Balance 480 / 480 240 / 240
[2024-12-12 11:47] LABS: Body Fluid Mononuclear 68.1 %; Body Fluid Polymorphonuclear 31.9 %; Body Fluid WBC 1932 /CUMM
[2024-12-12 12:15] VITALS: BP 72/57; BP_SYST 13
[2024-12-12 12:19] LABS: Body Fluid Second Tech SS
[2024-12-12 12:30] VITALS: BP 105/55; BP_SYST 14
--- NOTE | 2024-12-12 14:45 | CM ---
CM reviewed chart, patient for EGD today. Patient seen bedside, reports no needs/concerns to CM at this time. CM will continue to follow for all discharge planning needs.
Plan; home with
[2024-12-12] MEDS: PROTONIX 40 MG PO (17:02)
[2024-12-12] MEDS: GAVILAX 238 GM PO (17:53)
[2024-12-12 22:20] LABS: CA 125 259 U/mL (0-35)
[2024-12-12 23:00] VITALS: BP 99/46
[2024-12-13] VITALS (9 sets, daily range): BP systolic 20–126; BP diastolic 63–96
[2024-12-13 02:26] LABS: CA 19-9 4 U/mL (<=35)
[2024-12-13] MEDS: GAVILAX 125 GM PO (05:28)
--- NOTE | 2024-12-13 05:40 | PTCARENOTE ---
RN clarified NPO order with GI doctor. Per provider, okay to give morning boiwel regimen for colonoscopy today. Per patient, her bowel movements remain clear from previous bowel regimen.
--- NOTE | 2024-12-13 07:46 | W.PN.ONC2 ---
Addendum entered and electronically signed by Austin Raza MD 12/13/24 15:22:
Asked to comment on SBP risk and need for Abx therapy.
I see a relatively low risk for SBP although cannot rule that out.
So far ascites cultures NEG for growth (18-24 hrs)
This appears to be advanced peritoneal carcinoma based on imaging and CA125 but need to await cytology and definitive omental biopsy schedule for later today.
I think after biopsy, if she is stable she can be discharged home as planned without antibiotic therapy.
Hepatology off site likely not aware of the entire clinical situation including the high suspicion of advanced neoplastic disease.
Please tell patient to look out for fevers, chills, rigors, SOB, dizziness. Those could be signs of infection and she could return if needed.
Updated care team.
HZ
Original Note:
Today's Communication / Plan
-
Await colonoscopy. Await paracentesis cytology. IR omental biopsy if possible. Reached out to Dr. Lavell Kellogg [employer] Onc as primary peritoneal carcinoma seems to be the most likely diagnosis pending pathologic evaluation.
Impression
Impression
Abdominal and pelvic ascites with omental caking, concerning for malignancy -ovarian/primary peritoneal carcinoma
Thrombocytosis
Mild normocytic anemia
Plan
Plan
Await diagnostic paracentesis for cell count, chemistries, cytology.
CA125 elevated. CEA and CA 19-9 normal.
EGD to evaluate gastric wall thickening relatively unremarkable. Single gastric polyp was biopsied. For colonoscopy to evaluate appendiceal thickening scheduled for today.
Await cytology. IR guided omental biopsy if colonoscopy unremarkable.
Will review case with Dr. Lavell Kellogg as tumor marker pattern and imaging suggestive of possibility primary peritoneal carcinoma as opposed to GI origin.
Subjective/Objective
Chief Complaint
ACS Heme Onc
Subjective
Patient is up and about in her semiprivate room. Underwent EGD yesterday. Had colon prep overnight and is scheduled for colonoscopy today.
Vital Signs:
Vital Signs
Temp Pulse Resp BP Pulse Ox
98.7 F 91 18 99/46 95
12/12/24 23:00 12/12/24 23:00 12/12/24 23:00 12/12/24 23:00 12/12/24 23:00
Lab Results:
Laboratory Data
WBC 8.3 10^3/uL (4.8-10.8) 12/12/24 06:22
Hgb 11.9 g/dL (12.0-16.0) L 12/12/24 06:22
Plt Count 591 10^3/uL (130-400) H 12/12/24 06:22
PT 13.7 Sec (11.4-14.6) 12/12/24 06:22
INR 1.01 12/12/24 06:22
APTT 30.5 Sec (23.4-35.0) 12/12/24 06:22
eGFR > 60.00 12/12/24 06:22
Laboratory Tests
12/11/24
05:39
Carcinoembryonic Ag < 0.31
CA 19-9 Antigen 4
CA 125 Antigen 259 H
Physical Exam
HEENT: No Jaundice
Cardiology: S1 and S2
Pulmonary: Clear
[2024-12-13] MEDS: CRESTOR PO ×2 (08:08→08:12)
[2024-12-13] MEDS: PROTONIX PO ×2 (08:08→08:12)
[2024-12-13] MEDS: VISBIOME PO ×2 (08:08→08:13)
[2024-12-13] MEDS: TUMS EX (EXTRA STRENGTH) CHEWABLE TABLET PO (08:13)
--- NOTE | 2024-12-13 11:02 | PN.CDI ---
CDI
- -
CDI:
Physician Documentation Request
Admit Date: 12/10/24 13:42
Dear Doctor Do,
Clinical Indicators:
Patient admitted with abdominal distention and ascites.
12/10 H & P: Patient presented with inability to eat/drink due to feeling full quickly.
Sodium levels:
12/11/24 12/12/24
05:39 06:22
Sodium 132 L 133 L
Based on the above, could you clarify in the progress notes, the appropriate diagnosis, if significant, that supports the above abnormalities and additional evaluation, monitoring and/or treatment rendered:
Hyponatremia
Abnormal lab values, clinically insignificant
Other, please specify
Use of terms such as suspected, likely, concern for, or probable (associated with a specific diagnosis that is being evaluated, monitored, or treated as if it exists) are acceptable and can be coded in the inpatient setting, when documented at the
time of discharge.
Thank you,
STEPHEN Davidson RN
CDI Specialist
available via tiger text
Please use your independent medical judgment in providing your response.
[2024-12-13] MEDS: ROCEPHIN 2000 MG IV (12:58)
[2024-12-13] MEDS: STERILE WATER FOR INJECTION 20 ML IV (12:58)
--- NOTE | 2024-12-13 12:59 | W.CON.GYNONC ---
Consultation
-
Date/Time Consultation Requested: December 13, 2024, 0930
Date/Time Consultation Performed: December 13, 2024 1300
Requesting Provider: Austin Raza
Performing Provider: Lavell Kellogg
Reason for Consultation: Peritoneal carcinomatosis
Chief Complaint
-
Abdominal bloating
History of Present Illness
64-year-old white woman in excellent health, no medical issues other than Lyme disease 2 years ago. About 3 weeks ago she began to note weight gain and abdominal distention. She underwent an abdominal ultrasound as an outpatient on December 07
which showed small to moderate volume of ascites and mildly heterogeneous hepatic echotexture. She became increasingly uncomfortable due to abdominal distention and presented to the [facility] emergency room where she underwent a CT of the
abdomen and pelvis showing moderate to large volume of ascites, nodular thickening of the omentum, and thickening of the appendiceal wall and the gastric wall. She was admitted for management of symptomatic ascites. Patient is up-to-date with
mammography. She last underwent colonoscopy at age 50 but underwent Cologuard testing in February 2024. She has had no rectal bleeding or melena, no change in bowel habits and no abdominal pain. She has had no vaginal bleeding, cough, chest pain
or shortness of breath.
Colonoscopy was done yesterday
Findings:
The terminal ileum appeared normal.
One large submucosal nodule/lesion was found at the appendiceal orifice.
Biopsies were taken with a cold forceps for histology bite on bite
fashion.
Internal hemorrhoids were found during retroflexion. The hemorrhoids
were small and Grade I (internal hemorrhoids that do not prolapse).
Impression: - The examined portion of the ileum was normal. Submucosal nodule at the appendiceal orifice. Biopsied.
- Internal hemorrhoids.
Past medical history
Lyme disease
Hypercholesterolemia
Past surgical history
None
Past gynecologic history
Menarche at 13, normal menses, menopausal at age 57,
Receives regular gynecologic care at [facility], last exam 1 year ago
There is no history of abnormal Pap smears, there is no postmenopausal bleeding
2 spontaneous vaginal deliveries 34 and 36 years ago
Social History
Tobacco: Non-smoker
Alcohol: 1 glass of wine daily
Drug: None
Family History
Family History: Not pertinent
Screening studies
Patient is up-to-date with mammography
Last colonoscopy was at age 50
Medical History
Allergies
Allergies reflect when allergies were last updated in [facility].
No Known Allergies Allergy (Verified 12/10/24 13:00)
Physical Exam
Vital Signs / I&O
Vitals
Temp Pulse Resp BP Pulse Ox
98.0 F 77 17 124/76 100
12/13/24 12:35 12/13/24 12:35 12/13/24 12:35 12/13/24 12:35 12/13/24 12:35
I&O
12/11/24 12/12/24 12/13/24 12/14/24
06:59 06:59 06:59 06:59
Intake Total 480 / 480 240 / 240 0 / 0
Balance 480 / 480 240 / 240 0 / 0
Physical Exam
General: Well Developed, Well Nourished and No Apparent Distress
HEENT: NC/AT
Respiratory: Clear
Cardiac: S1/S2 and Regular Rhythm; No Murmur or Rub
GI: Soft, Non Tender, Normal Bowel Sounds and not Distended; No Organomegaly
Rectal: Deferred by Provider
Musculoskeletal: No Clubbing, No Cyanosis and No Edema
Skin: No Rash
Neuro: Nonfocal/grossly intact
Results
-
12/12/24 06:22
12/12/24 06:22
[facility]
[address] [place] [id number]
[phone]
Patient Name: CEM NEWBERRY
: 1960
Unit Number: [id number]
Age/Sex: 64/F
Patient
Location: EMR
Order Provider: Rudolph Escobedo PA-C
Exam Service Date: 12/10/24

Diagnostic Imaging Report
SignedOrder #:[id number]
Exams: CT Abd/pel W Iv And Oral Contr
CPT: 31826
PROCEDURES: CT Abd/pel W Iv And Oral Contr
CLINICAL INDICATION: Abdominal distention and bloating. Ascites.
TECHNIQUE: A CT examination of the abdomen and pelvis was performed following the administration of nonionic intravenous contrast. Oral contrast was administered. Coronal and sagittal reformatted images were obtained. Automatic exposure control
radiation dose reduction technology was utilized.
COMPARISON: Comparison is made with ultrasound examinations of the abdomen performed 12/07/2024 and pelvis performed 07/17/2017.
FINDINGS:
CHEST: The heart is normal in size. There is no pericardial or pleural effusion. There is a minimal amount of dependent subsegmental atelectasis in the basilar segments of both lower lobes. There are thin bands of subsegmental atelectasis or
scarring in the right middle lobe and lingula.
ABDOMEN: There is a moderate to large volume of malignant abdominal and pelvic ascites measuring 14 Hounsfield units in attenuation. There is nodular thickening of the greater omentum in the left upper quadrant of the abdomen measuring up to 2.3 cm
in thickness (axial image #37, series #201) consistent with omental metastatic disease.
The ascites causes mild scalloping of the lateral contour for of the right lobe of the liver. The liver is mildly enlarged with the right lobe measuring 18.5 cm in length. The gallbladder, bile ducts, pancreas, adrenal glands, and kidneys appear
normal. There is moderate calcific atherosclerotic plaque in the abdominal aorta without evidence for aneurysmal dilatation. There is no retroperitoneal or mesenteric lymphadenopathy. The spleen is normal in size.
There is a small sliding-type hiatal hernia. There is no abnormal distention of the stomach. There is a moderate amount of circumferential submucosal edema and wall thickening in the gastric antrum. There is no abnormal distention or wall thickening
in the duodenum or jejunum. There is no pneumoperitoneum.
PELVIS: There is mild distention of some of the right lower quadrant ileal small bowel loops with contrast material. There appear to be several intraluminal or subserosal masses in the ileal small bowel loops in the right lower quadrant and right
side of the midabdomen measuring 2.1 cm (coronal image #20) and 1.5 cm (axial image #54, series #201 and coronal image #20, series # 202).
The appendiceal wall is diffusely thickened measuring 1.2 cm in thickness. There is no abnormal distention of the appendix (axial image #64, series #201 and coronal image #29, series #202).
Oral contrast passes through the small bowel and into the colon. The cecum and ascending colon are mildly distended. The transverse colon is mildly distended with air. The splenic flexure of the colon, descending colon, and sigmoid colon are
completely collapsed. There is mild diverticulosis in the sigmoid colon. The rectum is nearly completely collapsed.
The uterus and ovaries are normal in size and surrounded by a large amount of pelvic ascites. There is an 8.2 mm cyst in the right ovary. There is no pelvic lymphadenopathy.
SKELETON: There is a minimal left convex curvature of the lower lumbar spine. There is mild multilevel lower lumbar and lower thoracic discogenic degenerative disease. There is moderate bilateral facet joint arthrosis at L4/L5 and moderate to severe
bilateral facet joint arthrosis at L5/S1. There is mild bilateral osteoarthritis of the sacroiliac joints. There are minimal degenerative changes of the pubic symphysis.
IMPRESSION:
1. Moderate to large volume MALIGNANT ASCITES.
2. 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
3. Small soft tissue masses within or around ileal small bowel loops in the right mid abdomen. Diagnostic possibilities are (1) serosal metastases or (2) mucosal-based small bowel tumors.
4. Moderate appendiceal wall thickening without evidence for abnormal distention.
5. 8.2 mm cyst in the right ovary.
6. Moderate circumferential wall thickening in the gastric antrum.
7. Small hiatal hernia.
Electronically signed by Ty Alatorre MD, 12/10/2024 11:59 AM
Impression / Plan
-
This is a 64-year-old woman who has generally excellent health with very little comorbidity now presenting with ascites and carcinomatosis.
She is status post paracentesis, cytology is pending
Her CA125 is elevated at 250 but CEA and CA 19�9 are normal, this is typical of m�llerian malignancies and I spoke to her about differential diagnosis of primary peritoneal cancer, epithelial cancer of ovary versus fallopian tube.
The patient was supposed to undergo omental biopsy however this was canceled because there was adequate amount of malignant cells on the paracentesis specimen.
She will be discharged from hospital tonight but will follow-up in [facility] with myself as well as Dr. Raza
Assuming there is confirmation of gynecologic malignancy the patient will most likely be treated with neoadjuvant chemotherapy with combination of paclitaxel and carboplatin and bevacizumab. Following that we will plan for interval debulking
surgery after 3 cycles.
I discussed the upcoming investigations including pelvic ultrasound, omental biopsy which will be needed for HRD and NGS testing, germline testing, placement of a port for chemotherapy.
Her questions were answered adequately. Patient is obviously overwhelmed but appreciative of the care provided during hospitalization.
--- NOTE | 2024-12-13 14:30 | CM ---
CM reviewed chart, reviewed with Nurse. Patient seen ambulating the halls. Patient for colonoscopy today, IR for biopsy. Plan remains home with , no needs. CM will continue to follow for all discharge planning needs.
Plan; home no needs
[2024-12-13 14:37] LABS: Body Fluid Mononuclear 71.3 %; Body Fluid Polymorphonuclear 28.7 %; Body Fluid WBC 2439 /CUMM
--- NOTE | 2024-12-13 14:49 | W.PN.UPDATE ---
Addendum entered and electronically signed by Amy Adkins MD 12/13/24 15:27:
D/w Dr. Raza antibiotics NOT needed since this is malignant ascites.
Defer to oncology agree this most likely represents malignancy.
Original Note:
Update Note
Progress Note Update
I spoke with hepatology regarding her fluid studies with elevated WBC and underlying malignancy - they do recommend still treated as SBP with 5 days IV abx and albumin day 1+3. Updated team.
[2024-12-13 15:00] LABS: Body Fluid Second Tech EF
--- NOTE | 2024-12-13 15:43 | W.PN.HOSP.TC ---
Today's Communication/Plan
-
Cleared by oncology and GI for discharge today
Assessment / Plan
Assessment / Plan
64F Hyperlipidemia here for evaluation abd distension likely malignant ascites.
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
# Metastatic omental disease
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
CT scan shows moderate to large volume malignant ascites, omental metastatic disease in left upper quadrant, small soft tissue masses within or around ileal small bowel loops in the right midabdomen, moderate appendiceal wall thickening, 8.2 mm cyst
in the right ovary, moderate circumferential wall thickening in the gastric antrum, small hiatal hernia
Status post paracentesis 12/12, draining 3.5 L, follow-up cytology
Status post paracentesis 12/13, draining 1.2 L, follow-up cytology
Appreciate oncology input, CA 125 antigen elevated at 259
Appreciate GI input, 12/12 EGD shows 1 gastric polyp and gastric body protrusion
Appreciate GI input, 12/13 colonoscopy shows submucosal nodule at the appendiceal orifice, biopsy taken
Discussed with oncology, GI, and IR�she has low risk for SBP
Cleared by team for discharge without antibiotics
Follow-up with Dr. Lavell Kellogg -MOLDING ENGINEER/ONC, ONC, and GI in the office
#Hyperlipidemia
Continue statin
#Hyponatremia
Monitor
DVT prophylaxis�subcu Lovenox
Full code
Physical Exam
General: No acute distress
HEENT: Normocephalic, Atraumatic, EOMI, MMM
Respiratory: Clear to Auscultation bilaterally
Cardiac: Normal S1/S2, Regular Rate and Rhythm
GI: Soft, Nontender, Nondistended, Normal Bowel Sounds
Extremities: No Clubbing, Cyanosis, or Edema
Neuro: Nonfocal/Grossly Intact
Psych: Calm, Cooperative
Anticipated Discharge: Today
Subjective/Interval History
-
Date of Service: December 13, 2024
Patient denies abdominal pain. No shortness of breath. No fever, no vomiting. She is requesting discharge today after her biopsy.
Objective Data
-
Vital Signs:
Vital Signs
Temp Pulse Resp BP Pulse Ox
98.1 F 91 12 107/73 100
12/13/24 07:00 12/13/24 07:00 12/13/24 07:00 12/13/24 07:00 12/13/24 07:00
I&O
12/12/24 12/13/24 12/14/24
06:59 06:59 06:59
Intake Total 240 / 240 0 / 0
Balance 240 / 240 0 / 0
--- NOTE | 2024-12-13 15:49 | W.DCSUMMARY ---
Discharge Summary
Discharge Data
Date of Admission: 12/10/24
Date of Discharge: 12/13/24
-
Pending Results: Yes
Additional Pending Results:
Peritoneal fluid cytology
Biopsies that were taken during EGD and colonoscopy
Hospital Course
Discharge diagnosis:
Moderate to large volume malignant ascites
Metastatic omental disease
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
Hyponatremia
Hyperlipidemia
Consults: Oncology, GI
CT abdomen pelvis:
1. Moderate to large volume MALIGNANT ASCITES.
2. 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
3. Small soft tissue masses within or around ileal small bowel loops in the right mid abdomen. Diagnostic possibilities are (1) serosal metastases or (2) mucosal-based small bowel tumors.
4. Moderate appendiceal wall thickening without evidence for abnormal distention.
5. 8.2 mm cyst in the right ovary.
6. Moderate circumferential wall thickening in the gastric antrum.
7. Small hiatal hernia.
Procedures:
12/12 paracentesis, draining 3.5 L, follow-up cytology
12/13 paracentesis, draining 1.2 L, follow-up cytology
12/12 EGD shows 1 gastric polyp and gastric body protrusion
12/13 colonoscopy shows submucosal nodule at the appendiceal orifice, biopsy taken
Hospital course:
64-year-old female with a past medical history of hyperlipidemia was admitted for moderate to large volume malignant ascites. CT of the abdomen and pelvis shows metastatic omental disease. She was seen in conjunction with oncology and GI. She had
2 colonoscopies, results as above. She also had 2 paracentesis, cytology is currently pending. Her CA 125 antigen was elevated at 259, which is suggestive of ovarian/gynecologic primary carcinoma. Patient wished to be discharged. Her peritoneal
fluid studies were concerning for possible SBP. She is afebrile, there is no leukocytosis on the day of discharge. Oncology does not feel that she has SBP. Suspect these fluid abnormalities are likely due to her cancer. GI and oncology have
cleared her for discharge off of antibiotics. She needs to follow-up with her primary care doctor in 1 week, oncology, Ux Designer/onc and GI in the office in 2-3 weeks.
Disposition: Home with home care
Discharge planning: Required 43-minute
Discharge Plan
-
Patient Disposition: Home (Routine Discharge)
Discharge Diagnosis/Procedures: Ascites/fluid in the abdomen, omental lesions, elevated tumor marker concerning for ovarian/gynecological cancer
Condition: Fair
Diet: Regular
Activity: As tolerated
Driving Restrictions: No driving for 24 hours
Activity Restrictions/Additional Instructions:
Please return to the ER if you have fever, chills, rigors, shortness of breath, or dizziness.
Please follow-up with oncology, DRAWING TRACER oncology, GI, and your primary care doctor.
Referrals:
Carolina Ambrose MD [Active, Hematology / Oncology] - in two to three weeks
Sidney Ribera DO [Family Provider, Family Practice] - in one week
Zari Webster MD [Active, Gastroenterology] - in two to three weeks
Lavell Kellogg MD [Active, DRAWING TRACER Oncology] - in two to three weeks
Prescriptions:
New
pantoprazole 40 mg Tablet,Delayed Release (Dr/Ec)
40 mg PO DAILY Qty: 30 0RF
Continued
rosuvastatin [Crestor] 5 mg Tablet
5 mg PO DAILY
calcium carbonate 300 mg (750 mg) Tablet,Chewable
600 mg PO DAILY
finasteride 1 mg Tablet
1 mg PO DAILY
Visbiome 112.5 billion cell Capsule
1 cap PO DAILY
Lumify 0.025 % Drops
1 drp OPHTHALMIC (EYE) DAILYPRN PRN (Reason: red eyes)
Collagen Peptides
1 dose PO DAILY
Rx Instructions:
OTC powder mixed in beverage
Discharge Orders:
Discharge Patient (As Directed); Ordered 12/13/24
Ordered By: Igor Vidales
Discharge Date and Time
Discharge Date/Time: 12/13/24 18:07
Print Language: GREEK
== END 2024-12-13 18:07 | disposition home or self-care (01) | DRG 755 ==
LOC: 4 WEST ACU 13:42
PROVIDERS: Internal Medicine; Internal Medicine Gastroenterology; Physician Assistant Medical; Radiology Diagnostic Radiology; Radiology Vascular & Interventional Radiology; ADMITTING PHYSICIAN Hospitalist; ATTENDING PHYSICIAN Family Medicine; CONSULT PHYSICIAN Internal Medicine Gastroenterology; CONSULT PHYSICIAN Internal Medicine Hematology & Oncology; EMERGENCY PHYSICIAN Emergency Medicine; FAMILY PHYSICIAN Family Medicine; OTHER PHYSICIAN Obstetrics & Gynecology Gynecologic Oncology
PROC: 0DB58ZX Excision of Esophagus, Via Natural or Artificial Opening Endoscopic, Diagnostic (ICD-10-PCS; 2024-12-12)
PROC: 0DB78ZX Excision of Stomach, Pylorus, Via Natural or Artificial Opening Endoscopic, Diagnostic (ICD-10-PCS; 2024-12-12)
PROC: 0W9G3ZZ Drainage of Peritoneal Cavity, Percutaneous Approach (ICD-10-PCS; 2024-12-12)
PROC: 0DB68ZX Excision of Stomach, Via Natural or Artificial Opening Endoscopic, Diagnostic (ICD-10-PCS; 2024-12-12)
PROC: 0DBH8ZX Excision of Cecum, Via Natural or Artificial Opening Endoscopic, Diagnostic (ICD-10-PCS; 2024-12-13)
DX: C56.9 Malignant neoplasm of unspecified ovary (principal); C48.1 Malignant neoplasm of specified parts of peritoneum; R18.0 Malignant ascites; D64.9 Anemia, unspecified; D72.829 Elevated white blood cell count, unspecified; E78.00 Pure hypercholesterolemia, unspecified; F41.9 Anxiety disorder, unspecified; K31.7 Polyp of stomach and duodenum; K44.9 Diaphragmatic hernia without obstruction or gangrene; K64.0 First degree hemorrhoids; M47.819 Spondylosis without myelopathy or radiculopathy, site unspecified; Z79.899 Other long term (current) drug therapy; Z86.19 Personal history of other infectious and parasitic diseases; Z87.891 Personal history of nicotine dependence
CPT/HCPCS: 88305; 49083; 49180; 74177; 77012; 80048; 80053; 81003; 81015; 82042; 82150; 82378; 82728; 83540; 83550; 83615; 83690; 83735; 84100; 84157; 85025; 85027; 85610; 85730; 86301; 86304; 87015; 87070; 87086; 87205; 88112; 88341; 88342; 88360; 89051; 99152; 99284; Q9967

== ENCOUNTER → 2024-12-23 06:53 | Outpatient (REF) | payer OTHER, SELFPAY ==
[2024-12-23] VITALS (9 sets, daily range): BP systolic 62–123; BP diastolic 48–75
--- NOTE | 2024-12-23 08:24 | PTCARENOTE ---
Received pt. at 0700 for paracentesis. Procedure completed, IV inserted and pt. prepped for CT guided omental biopsy. Consent obtained by Dr. Arita @0800
[2024-12-23 08:41] LABS: Body Fluid Mononuclear 81.3 %; Body Fluid Polymorphonuclear 18.7 %; Body Fluid WBC 1236 /CUMM
[2024-12-23 08:44] LABS: Body Fluid Second Tech BGK
== END ==
LOC: RADI 06:53
PROVIDERS: ATTENDING PHYSICIAN Obstetrics & Gynecology Gynecologic Oncology; FAMILY PHYSICIAN Family Medicine
DX: C48.1 Malignant neoplasm of specified parts of peritoneum (principal); C56.9 Malignant neoplasm of unspecified ovary; R18.0 Malignant ascites; C80.0 Disseminated malignant neoplasm, unspecified
CPT/HCPCS: 88305; 49083; 49180; 77012; 88333; 88341; 88360; 89051; 99152

== ENCOUNTER → 2024-12-29 08:22 | Outpatient (REF) | payer MEDICARE, SELFPAY ==
[2024-12-29 09:03] VITALS: BP 120/73; BP_SYST 81
[2024-12-29] MEDS: ANCEF 10 IV (09:14)
[2024-12-29 10:47] VITALS: BP 113/54
== END ==
LOC: RADI 08:22
PROVIDERS: ATTENDING PHYSICIAN Obstetrics & Gynecology Gynecologic Oncology; FAMILY PHYSICIAN Family Medicine
DX: C56.9 Malignant neoplasm of unspecified ovary (principal); C78.6 Secondary malignant neoplasm of retroperitoneum and peritoneum
CPT/HCPCS: 36561; 76937; 77001; 99152; 99153

== ENCOUNTER → 2025-01-02 16:54 | Outpatient (REF) | payer MEDICARE, SELFPAY ==
[2025-01-02 09:44] LABS: Hematocrit 37.7 % (37.0-47.0); Hemoglobin 12.3 g/dL (12.0-16.0); Mean Corp Hgb Conc. 32.6 g/dL (33.0-37.0); Mean Corpuscular Volume 89.1 fL (81.0-99.0); Platelet Count 440 10^3/uL (130-400); Red Cell Dist. Width 13.0 % (11.5-14.5)
[2025-01-02 10:33] LABS: ALT (SGPT) < 10 U/L (0-35); AST (SGOT) 18 U/L (14-36); Albumin 3.5 g/dl (3.5-5.0); Alkaline Phosphatase 94 U/L (38-126); Blood Urea Nitrogen 13 mg/dl (7-17); Calcium 9.0 mg/dl (8.4-10.2); Carbon Dioxide 27 mmol/L (22-30); Chloride 105 mmol/L (98-107); Glucose 103 mg/dl (70-99); Potassium 4.6 mmol/L (3.5-5.1); Sodium 136 mmol/L (135-145); Total Protein 6.2 g/dl (6.3-8.2); eGFR > 60.00
== END ==
LOC: OIDL 16:54
PROVIDERS: ATTENDING PHYSICIAN Obstetrics & Gynecology Gynecologic Oncology
DX: C80.0 Disseminated malignant neoplasm, unspecified (principal); R18.0 Malignant ascites; C56.9 Malignant neoplasm of unspecified ovary; Z12.4 Encounter for screening for malignant neoplasm of cervix
CPT/HCPCS: 80053; 85025

== ENCOUNTER → 2025-01-04 07:34 | Outpatient (REF) | payer MEDICARE, SELFPAY ==
[2025-01-04 07:57] VITALS: BP 116/75; BP_SYST 80
[2025-01-04 08:46] VITALS: BP 116/57
[2025-01-04 13:39] LABS: Body Fluid Second Tech CW
== END ==
LOC: RADI 07:34
PROVIDERS: ATTENDING PHYSICIAN Obstetrics & Gynecology Gynecologic Oncology; FAMILY PHYSICIAN Family Medicine
DX: C80.1 Malignant (primary) neoplasm, unspecified (principal); R18.0 Malignant ascites
CPT/HCPCS: 49083; 89051

== ENCOUNTER → 2025-01-09 07:08 | Outpatient (REF) | payer MEDICARE, SELFPAY ==
[2025-01-09 08:19] LABS: Hematocrit 38.7 % (37.0-47.0); Hemoglobin 12.5 g/dL (12.0-16.0); Mean Corp Hgb Conc. 32.3 g/dL (33.0-37.0); Mean Corpuscular Volume 88.4 fL (81.0-99.0); Platelet Count 336 10^3/uL (130-400); Red Cell Dist. Width 13.5 % (11.5-14.5)
[2025-01-09 08:43] LABS: ALT (SGPT) 16 U/L (0-35); AST (SGOT) 40 U/L (14-36); Albumin 3.8 g/dl (3.5-5.0); Alkaline Phosphatase 161 U/L (38-126); Blood Urea Nitrogen 8 mg/dl (7-17); Calcium 9.3 mg/dl (8.4-10.2); Carbon Dioxide 28 mmol/L (22-30); Chloride 99 mmol/L (98-107); Glucose 87 mg/dl (70-99); Potassium 4.8 mmol/L (3.5-5.1); Sodium 134 mmol/L (135-145); Total Protein 6.4 g/dl (6.3-8.2); eGFR > 60.00
[2025-01-09 09:01] LABS: Absolute Neutrophils -Man Diff 42.3 10^3/uL (1.4-6.5); Normal RBC Morphology Yes; Platelets Checked Yes; Total Cells Counted 100
== END ==
LOC: REG 07:08
PROVIDERS: ATTENDING PHYSICIAN Internal Medicine Hematology & Oncology; FAMILY PHYSICIAN Family Medicine
DX: C80.0 Disseminated malignant neoplasm, unspecified (principal); R18.0 Malignant ascites; C56.9 Malignant neoplasm of unspecified ovary; Z12.4 Encounter for screening for malignant neoplasm of cervix
CPT/HCPCS: 36415; 80053; 85025

== ENCOUNTER → 2025-01-12 07:30 | Outpatient (REF) | payer MEDICARE, SELFPAY ==
[2025-01-12 07:43] VITALS: BP 108/67; BP_SYST 89
[2025-01-12 10:39] LABS: Body Fluid Second Tech SS
== END ==
LOC: RADI 07:30
PROVIDERS: ATTENDING PHYSICIAN Obstetrics & Gynecology Gynecologic Oncology
DX: C80.1 Malignant (primary) neoplasm, unspecified (principal); R18.0 Malignant ascites
CPT/HCPCS: 49083; 89051

== ENCOUNTER → 2025-01-16 06:55 | Outpatient (REF) | payer MEDICARE, SELFPAY ==
[2025-01-16 08:09] LABS: Hematocrit 35.9 % (37.0-47.0); Hemoglobin 11.5 g/dL (12.0-16.0); Mean Corp Hgb Conc. 32.0 g/dL (33.0-37.0); Mean Corpuscular Volume 88.2 fL (81.0-99.0); Platelet Count 281 10^3/uL (130-400); Red Cell Dist. Width 14.2 % (11.5-14.5)
[2025-01-16 08:31] LABS: Absolute Neutrophils -Man Diff 28.9 10^3/uL (1.4-6.5); Platelets Checked Yes
[2025-01-16 08:32] LABS: Anisocytosis 1+; Hypochromasia 1+; Normal RBC Morphology No; Ovalocytes FEW; Polychromasia 1+; Stomatocytes FEW; Total Cells Counted 100
[2025-01-16 08:44] LABS: ALT (SGPT) < 10 U/L (0-35); AST (SGOT) 19 U/L (14-36); Albumin 3.4 g/dl (3.5-5.0); Alkaline Phosphatase 153 U/L (38-126); Blood Urea Nitrogen 11 mg/dl (7-17); Calcium 8.8 mg/dl (8.4-10.2); Carbon Dioxide 27 mmol/L (22-30); Chloride 103 mmol/L (98-107); Glucose 102 mg/dl (70-99); Potassium 4.0 mmol/L (3.5-5.1); Sodium 136 mmol/L (135-145); Total Protein 6.0 g/dl (6.3-8.2); eGFR > 60.00
== END ==
LOC: REG 06:55
PROVIDERS: ATTENDING PHYSICIAN Internal Medicine Hematology & Oncology; FAMILY PHYSICIAN Family Medicine
DX: C80.0 Disseminated malignant neoplasm, unspecified (principal); R18.0 Malignant ascites; C56.9 Malignant neoplasm of unspecified ovary; Z12.4 Encounter for screening for malignant neoplasm of cervix
CPT/HCPCS: 36415; 80053; 85025

== ENCOUNTER → 2025-01-20 06:45 | Outpatient (REF) | payer MEDICARE, SELFPAY ==
[2025-01-20 07:15] VITALS: BP 125/66; BP_SYST 90
[2025-01-20 08:07] VITALS: BP 123/66; BP_SYST 72
[2025-01-20 08:14] VITALS: BP 123/66
[2025-01-20 09:09] LABS: Body Fluid Second Tech EM
== END ==
LOC: RADI 06:45
PROVIDERS: ATTENDING PHYSICIAN Obstetrics & Gynecology Gynecologic Oncology
DX: C80.1 Malignant (primary) neoplasm, unspecified (principal); R18.0 Malignant ascites
CPT/HCPCS: 49083; 89051

== ENCOUNTER → 2025-01-21 08:21 | Outpatient (REF) | payer MEDICARE, SELFPAY ==
[2025-01-21 11:17] LABS: Hematocrit 32.4 % (37.0-47.0); Hemoglobin 10.4 g/dL (12.0-16.0); Mean Corp Hgb Conc. 32.1 g/dL (33.0-37.0); Mean Corpuscular Volume 89.5 fL (81.0-99.0); Nucleated Red Blood Cells % 0 %; Platelet Count 450 10^3/uL (130-400); Red Cell Dist. Width 14.6 % (11.5-14.5)
[2025-01-21 12:28] LABS: ALT (SGPT) < 10 U/L (0-35); AST (SGOT) 17 U/L (14-36); Albumin 3.2 g/dl (3.5-5.0); Alkaline Phosphatase 125 U/L (38-126); Blood Urea Nitrogen 11 mg/dl (7-17); Calcium 8.5 mg/dl (8.4-10.2); Carbon Dioxide 28 mmol/L (22-30); Chloride 102 mmol/L (98-107); Glucose 83 mg/dl (70-99); Potassium 4.5 mmol/L (3.5-5.1); Sodium 135 mmol/L (135-145); Total Protein 5.8 g/dl (6.3-8.2); eGFR > 60.00
== END ==
LOC: REG 08:21
PROVIDERS: ATTENDING PHYSICIAN Internal Medicine Hematology & Oncology; FAMILY PHYSICIAN Family Medicine
DX: C80.0 Disseminated malignant neoplasm, unspecified (principal); R18.0 Malignant ascites; C56.9 Malignant neoplasm of unspecified ovary; Z12.4 Encounter for screening for malignant neoplasm of cervix
CPT/HCPCS: 36415; 80053; 85025

== ENCOUNTER → 2025-01-27 07:00 | Outpatient (REF) | payer MEDICARE, SELFPAY ==
[2025-01-27 07:14] VITALS: BP 120/69; BP_SYST 77
[2025-01-27 07:44] VITALS: BP 118/66; BP_SYST 78
[2025-01-27 07:58] VITALS: BP 118/66
[2025-01-27 09:13] LABS: Body Fluid Second Tech EM
== END ==
LOC: RADI 07:00
PROVIDERS: ATTENDING PHYSICIAN Obstetrics & Gynecology Gynecologic Oncology; FAMILY PHYSICIAN Family Medicine
DX: R18.8 Other ascites (principal)
CPT/HCPCS: 49083; 89051

== ENCOUNTER → 2025-01-30 06:43 | Outpatient (REF) | payer MEDICARE, SELFPAY ==
[2025-01-30 08:19] LABS: Hematocrit 35.4 % (37.0-47.0); Hemoglobin 11.1 g/dL (12.0-16.0); Mean Corp Hgb Conc. 31.4 g/dL (33.0-37.0); Mean Corpuscular Volume 89.6 fL (81.0-99.0); Platelet Count 370 10^3/uL (130-400); Red Cell Dist. Width 15.6 % (11.5-14.5)
[2025-01-30 08:44] LABS: ALT (SGPT) 11 U/L (0-35); AST (SGOT) 26 U/L (14-36); Albumin 4.0 g/dl (3.5-5.0); Alkaline Phosphatase 135 U/L (38-126); Blood Urea Nitrogen 14 mg/dl (7-17); Calcium 9.3 mg/dl (8.4-10.2); Carbon Dioxide 28 mmol/L (22-30); Chloride 102 mmol/L (98-107); Glucose 88 mg/dl (70-99); Potassium 4.7 mmol/L (3.5-5.1); Total Protein 7.0 g/dl (6.3-8.2); eGFR > 60.00
[2025-01-30 08:49] LABS: Sodium 136 mmol/L (135-145)
[2025-01-30 09:10] LABS: Nucleated Red Blood Cells % 0 %
== END ==
LOC: REG 06:43
PROVIDERS: ATTENDING PHYSICIAN Internal Medicine Hematology & Oncology; FAMILY PHYSICIAN Family Medicine
DX: C56.9 Malignant neoplasm of unspecified ovary (principal); R18.0 Malignant ascites; C80.0 Disseminated malignant neoplasm, unspecified; Z12.4 Encounter for screening for malignant neoplasm of cervix
CPT/HCPCS: 36415; 80053; 85025

== ENCOUNTER → 2025-02-06 06:45 | Outpatient (REF) | payer MEDICARE, SELFPAY ==
[2025-02-06 08:06] LABS: Hematocrit 34.6 % (37.0-47.0); Hemoglobin 11.0 g/dL (12.0-16.0); Mean Corp Hgb Conc. 31.8 g/dL (33.0-37.0); Mean Corpuscular Volume 91.1 fL (81.0-99.0); Platelet Count 235 10^3/uL (130-400); Red Cell Dist. Width 17.6 % (11.5-14.5)
[2025-02-06 08:22] LABS: ALT (SGPT) < 10 U/L (0-35); AST (SGOT) 20 U/L (14-36); Albumin 4.0 g/dl (3.5-5.0); Alkaline Phosphatase 143 U/L (38-126); Blood Urea Nitrogen 16 mg/dl (7-17); Calcium 9.2 mg/dl (8.4-10.2); Carbon Dioxide 26 mmol/L (22-30); Chloride 103 mmol/L (98-107); Glucose 88 mg/dl (70-99); Potassium 4.8 mmol/L (3.5-5.1); Sodium 136 mmol/L (135-145); Total Protein 6.8 g/dl (6.3-8.2); eGFR > 60.00
[2025-02-06 08:50] LABS: Absolute Neutrophils -Man Diff 19.4 10^3/uL (1.4-6.5); Normal RBC Morphology Yes; Platelets Checked Yes; Total Cells Counted 100
== END ==
LOC: REG 06:45
PROVIDERS: ATTENDING PHYSICIAN Internal Medicine Hematology & Oncology; FAMILY PHYSICIAN Family Medicine
DX: C56.9 Malignant neoplasm of unspecified ovary (principal); R18.0 Malignant ascites; C80.0 Disseminated malignant neoplasm, unspecified; Z12.4 Encounter for screening for malignant neoplasm of cervix
CPT/HCPCS: 36415; 80053; 85025

== ENCOUNTER → 2025-02-13 07:44 | Outpatient (REF) | payer MEDICARE, SELFPAY ==
[2025-02-13 09:06] LABS: Hematocrit 33.1 % (37.0-47.0); Hemoglobin 10.7 g/dL (12.0-16.0); Mean Corp Hgb Conc. 32.3 g/dL (33.0-37.0); Mean Corpuscular Volume 89.7 fL (81.0-99.0); Nucleated Red Blood Cells % 0 %; Platelet Count 259 10^3/uL (130-400); Red Cell Dist. Width 18.5 % (11.5-14.5)
[2025-02-13 10:01] LABS: ALT (SGPT) < 10 U/L (0-35); AST (SGOT) 19 U/L (14-36); Albumin 4.2 g/dl (3.5-5.0); Alkaline Phosphatase 104 U/L (38-126); Blood Urea Nitrogen 19 mg/dl (7-17); Calcium 9.1 mg/dl (8.4-10.2); Carbon Dioxide 25 mmol/L (22-30); Chloride 105 mmol/L (98-107); Glucose 89 mg/dl (70-99); Potassium 5.2 mmol/L (3.5-5.1); Sodium 136 mmol/L (135-145); Total Protein 7.2 g/dl (6.3-8.2); eGFR > 60.00
== END ==
LOC: REG 07:44
PROVIDERS: ATTENDING PHYSICIAN Internal Medicine Hematology & Oncology; FAMILY PHYSICIAN Family Medicine
DX: C56.9 Malignant neoplasm of unspecified ovary (principal); R18.0 Malignant ascites; C80.0 Disseminated malignant neoplasm, unspecified; Z12.4 Encounter for screening for malignant neoplasm of cervix
CPT/HCPCS: 36415; 80053; 85025

== ENCOUNTER → 2025-02-20 06:21 | Outpatient (REF) | payer MEDICARE, SELFPAY ==
[2025-02-20 07:48] LABS: Hematocrit 32.3 % (37.0-47.0); Hemoglobin 10.4 g/dL (12.0-16.0); Mean Corp Hgb Conc. 32.2 g/dL (33.0-37.0); Mean Corpuscular Volume 91.2 fL (81.0-99.0); Platelet Count 243 10^3/uL (130-400); Red Cell Dist. Width 20.1 % (11.5-14.5)
[2025-02-20 08:07] LABS: ALT (SGPT) 12 U/L (0-35); AST (SGOT) 22 U/L (14-36); Albumin 4.4 g/dl (3.5-5.0); Alkaline Phosphatase 126 U/L (38-126); Blood Urea Nitrogen 17 mg/dl (7-17); Calcium 9.4 mg/dl (8.4-10.2); Carbon Dioxide 28 mmol/L (22-30); Chloride 100 mmol/L (98-107); Glucose 83 mg/dl (70-99); Potassium 4.5 mmol/L (3.5-5.1); Sodium 135 mmol/L (135-145); Total Protein 7.4 g/dl (6.3-8.2); eGFR > 60.00
[2025-02-20 08:32] LABS: Nucleated Red Blood Cells % 0 %
== END ==
LOC: REG 06:21
PROVIDERS: ATTENDING PHYSICIAN Internal Medicine Hematology & Oncology; FAMILY PHYSICIAN Family Medicine
DX: C80.0 Disseminated malignant neoplasm, unspecified (principal); R18.0 Malignant ascites; C56.9 Malignant neoplasm of unspecified ovary; Z12.4 Encounter for screening for malignant neoplasm of cervix
CPT/HCPCS: 36415; 80053; 85025

== ENCOUNTER → 2025-02-25 07:44 | Outpatient (REF) | payer MEDICARE, SELFPAY ==
[2025-02-25 08:29] LABS: Hematocrit 33.4 % (37.0-47.0); Hemoglobin 10.5 g/dL (12.0-16.0); Mean Corp Hgb Conc. 31.4 g/dL (33.0-37.0); Mean Corpuscular Volume 92.5 fL (81.0-99.0); Platelet Count 281 10^3/uL (130-400); Red Cell Dist. Width 21.5 % (11.5-14.5)
[2025-02-25 09:01] LABS: ALT (SGPT) 15 U/L (0-35); AST (SGOT) 28 U/L (14-36); Albumin 4.6 g/dl (3.5-5.0); Alkaline Phosphatase 164 U/L (38-126); Blood Urea Nitrogen 13 mg/dl (7-17); Calcium 9.6 mg/dl (8.4-10.2); Carbon Dioxide 27 mmol/L (22-30); Chloride 103 mmol/L (98-107); Glucose 81 mg/dl (70-99); Potassium 4.8 mmol/L (3.5-5.1); Sodium 137 mmol/L (135-145); Total Protein 7.4 g/dl (6.3-8.2); eGFR > 60.00
[2025-02-25 11:23] LABS: Absolute Neutrophils -Man Diff 33.1 10^3/uL (1.4-6.5)
[2025-02-25 11:24] LABS: Anisocytosis 1+; Normal RBC Morphology No; Platelets Checked Yes
[2025-02-25 11:25] LABS: Hypochromasia 1+; Ovalocytes Slight; Polychromasia Slight; Stomatocytes Slight; Total Cells Counted 100
== END ==
LOC: REG 07:44
PROVIDERS: ATTENDING PHYSICIAN Internal Medicine Hematology & Oncology; FAMILY PHYSICIAN Family Medicine
DX: C80.0 Disseminated malignant neoplasm, unspecified (principal); R18.0 Malignant ascites; C56.9 Malignant neoplasm of unspecified ovary; Z12.4 Encounter for screening for malignant neoplasm of cervix
CPT/HCPCS: 36415; 80053; 85025

== ENCOUNTER → 2025-02-28 07:30 | Outpatient (REF) | payer MEDICARE, SELFPAY | LOC: RAD 07:30 | PROVIDERS: ATTENDING PHYSICIAN Nurse Practitioner Primary Care; FAMILY PHYSICIAN Family Medicine | DX: C80.0 Disseminated malignant neoplasm, unspecified (principal); R18.0 Malignant ascites; C56.9 Malignant neoplasm of unspecified ovary; Z12.4 Encounter for screening for malignant neoplasm of cervix | CPT/HCPCS: 71260; 74177; Q9967 ==

== ENCOUNTER → 2025-03-06 06:46 | Outpatient (REF) | payer MEDICARE, SELFPAY ==
[2025-03-06 07:20] LABS: Hematocrit 34.3 % (37.0-47.0); Hemoglobin 11.1 g/dL (12.0-16.0); Mean Corp Hgb Conc. 32.4 g/dL (33.0-37.0); Mean Corpuscular Volume 93.5 fL (81.0-99.0); Nucleated Red Blood Cells % 0 %; Platelet Count 245 10^3/uL (130-400); Red Cell Dist. Width 21.7 % (11.5-14.5)
[2025-03-06 07:49] LABS: ALT (SGPT) < 10 U/L (0-35); AST (SGOT) 21 U/L (14-36); Albumin 4.3 g/dl (3.5-5.0); Alkaline Phosphatase 102 U/L (38-126); Blood Urea Nitrogen 12 mg/dl (7-17); Calcium 9.3 mg/dl (8.4-10.2); Carbon Dioxide 28 mmol/L (22-30); Chloride 104 mmol/L (98-107); Glucose 91 mg/dl (70-99); Potassium 5.3 mmol/L (3.5-5.1); Sodium 137 mmol/L (135-145); Total Protein 7.0 g/dl (6.3-8.2); eGFR > 60.00
== END ==
LOC: REG 06:46
PROVIDERS: ATTENDING PHYSICIAN Internal Medicine Hematology & Oncology; FAMILY PHYSICIAN Family Medicine
DX: C80.0 Disseminated malignant neoplasm, unspecified (principal); R18.0 Malignant ascites; C56.9 Malignant neoplasm of unspecified ovary; Z12.4 Encounter for screening for malignant neoplasm of cervix
CPT/HCPCS: 36415; 80053; 85025

== ENCOUNTER → 2025-04-13 06:42 | Outpatient (REF) | payer MEDICARE, SELFPAY ==
[2025-04-13 07:34] LABS: Hematocrit 35.6 % (37.0-47.0); Hemoglobin 11.6 g/dL (12.0-16.0); Mean Corp Hgb Conc. 32.6 g/dL (33.0-37.0); Mean Corpuscular Volume 97.3 fL (81.0-99.0); Nucleated Red Blood Cells % 0 %; Platelet Count 329 10^3/uL (130-400); Red Cell Dist. Width 14.3 % (11.5-14.5)
== END ==
LOC: REG 06:42
PROVIDERS: ATTENDING PHYSICIAN Internal Medicine Hematology & Oncology; FAMILY PHYSICIAN Family Medicine
DX: C80.0 Disseminated malignant neoplasm, unspecified (principal); R18.0 Malignant ascites; C56.9 Malignant neoplasm of unspecified ovary; Z12.4 Encounter for screening for malignant neoplasm of cervix
CPT/HCPCS: 36415; 85025